=== PATIENT | female | born 1950 | race Caucasian/White ===

== ENCOUNTER 2020-07-15 07:56 | Day surgery (SDC) | payer MEDICARE ==
[2020-07-15] VITALS (9 sets, daily range): BP systolic 119–165; BP diastolic 54–82
[~2020-07-15] VITALS: Ht 160 cm; Wt 89.9 kg
[2020-07-15] MEDS ORDERED: OXCA150T14 (09:12)
[2020-07-15] MEDS ORDERED: METO-395 PO (09:12)
[2020-07-15] MEDS ORDERED: FURO20TA4 PO (09:12)
[2020-07-15] MEDS ORDERED: PHEN100C12 PO (09:12)
[2020-07-15] MEDS ORDERED: LEVO50TA8 PO (09:12)
[2020-07-15] MEDS ORDERED: LEVE750T PO (09:12)
[2020-07-15 12:56] LABS: GLUCOSE,CSF 50 MG/DL (40-75); TOTAL PROTEIN,CSF 171 MG/DL (30-60)
[2020-07-15 13:18] LABS: EOSINOPHILS,CSF 2 %; LYMPHOCYTES,CSF 57 % (40-80); MONOCYTES,CSF 19 % (15-45); NEUTRO,CSF 22 % (0-6)
[2020-07-15 13:19] LABS: APPEARANCE,CSF BLOODY; CSF SUPERNATANT COLOR RED; CSF VOLUME 6 ML; TUBE# COUNTED 2
[2020-07-15 13:25] LABS: CSF RBC 30025 /CU MM (0); CSF WBC CT 13 /CU MM (0-5)
[2020-07-15 13:47] LABS: BASOPHILS # (AUTO) 0.1 X10'3 (0-0.2); BASOPHILS % (AUTO) 1.2 % (0-1); EOSINOPHILS # (AUTO) 0.2 X10'3 (0-0.9); EOSINOPHILS % (AUTO) 3.9 % (0-6); HEMATOCRIT 39.5 % (35.0-45.0); LYMPHOCYTES # (AUTO) 2.5 X10'3 (1.1-4.8); LYMPHOCYTES % (AUTO) 42.9 % (21-51); MEAN CORPUSCULAR HEMOGLOBIN 35.7 PG (27.0-31.0); MEAN CORPUSCULAR HGB CONC 35.5 g/dL (33.0-36.5); MEAN CORPUSCULAR VOLUME 100.7 FL (78-98); MEAN PLATELET VOLUME 8.9 FL (7.4-10.4); MONOCYTES # (AUTO) 0.9 X10'3 (0-0.9); MONOCYTES % (AUTO) 15.9 % (2-12); NEUTROPHILS # (AUTO) 2.1 X10'3 (1.8-7.7); NEUTROPHILS % (AUTO) 36.1 % (42-75); PLATELET COUNT 173 X10'3 (140-440); RED BLOOD COUNT 3.93 X10'6 (4.20-5.60); RED CELL DISTRIBUTION WIDTH 13.1 % (11.5-14.5); WHITE BLOOD COUNT 5.8 X10'3 (4.5-11.0)
[2020-07-25 17:35] LABS: CSF WEST NILE VIRUS, IGG Negative (Negative); CSF WEST NILE VIRUS, IGM Negative (Negative)
[2020-07-26 17:21] LABS: VDRL, CSF Non Reactive (Non Rea:<1:1)
== END 2020-07-15 15:20 | disposition home or self-care (01) ==
LOC: RAD 07:56
PROVIDERS: ATTEND Psychiatry & Neurology Neurology
DX: G37.9 Demyelinating disease of central nervous system, unspecified (principal); G40.89 Other seizures; I10 Essential (primary) hypertension; Z86.73 Personal history of transient ischemic attack (TIA), and cerebral infarction without residual deficits; R41.3 Other amnesia
CPT/HCPCS: 36415; 62328; 82164; 82945; 83605; 83615; 83873; 83916; 84157; 84166; 85025; 86335; 86592; 86617; 86788; 86789; 87015; 87070; 87075; 87102; 87210; 89051

== ENCOUNTER 2020-11-16 07:22 | Day surgery (SDC) | payer MEDICARE ==
[~2020-11-16] VITALS: Ht 160 cm; Wt 89.8 kg
[~2020-11-16 07:22] MED LIST: FURO20TA4 PO; LEVE750T PO; LEVO50TA8 PO; METO-395 PO; OXCA150T14 PO; PHEN100C12 PO
[2020-11-16 09:15] LABS: BASOPHILS # (AUTO) 0.1 X10'3 (0-0.2); BASOPHILS % (AUTO) 0.9 % (0-1); EOSINOPHILS # (AUTO) 0.2 X10'3 (0-0.9); HEMATOCRIT 40.5 % (35.0-45.0); LYMPHOCYTES # (AUTO) 2.3 X10'3 (1.1-4.8); LYMPHOCYTES % (AUTO) 40.8 % (21-51); MEAN CORPUSCULAR HEMOGLOBIN 35.8 PG (27.0-31.0); MEAN CORPUSCULAR HGB CONC 34.6 g/dL (33.0-36.5); MEAN CORPUSCULAR VOLUME 103.4 FL (78-98); MEAN PLATELET VOLUME 8.2 FL (7.4-10.4); MONOCYTES # (AUTO) 0.8 X10'3 (0-0.9); MONOCYTES % (AUTO) 13.8 % (2-12); NEUTROPHILS # (AUTO) 2.4 X10'3 (1.8-7.7); NEUTROPHILS % (AUTO) 41.5 % (42-75); PLATELET COUNT 186 X10'3 (140-440); RED BLOOD COUNT 3.92 X10'6 (4.20-5.60); RED CELL DISTRIBUTION WIDTH 13.2 % (11.5-14.5); WHITE BLOOD COUNT 5.7 X10'3 (4.5-11.0)
[2020-11-16 10:03] VITALS: BP 151/69
[2020-11-16] MEDS ORDERED: VITA1TAB20 PO (10:27)
[2020-11-16] MEDS ORDERED: IBUP-1984 PO (10:27)
[2020-11-16] MEDS ORDERED: ASPI81TA52 PO (10:27)
[2020-11-16] MEDS ORDERED: CETI-194 PO (10:27)
[2020-11-16] MEDS ORDERED: MAGN500C16 PO (10:27)
[2020-11-16] MEDS ORDERED: MELA10CA2 PO (10:27)
[2020-11-16] MEDS ORDERED: POTA8CAP20 PO (10:27)
[2020-11-16] MEDS ORDERED: CHOL400T57 PO (10:27)
[2020-11-16] MEDS ORDERED: CA C1TAB95 PO (10:27)
[2020-11-16 11:20] VITALS: BP 144/78
[2020-11-16 11:35] VITALS: BP 163/77
[2020-11-16 11:50] VITALS: BP 157/76
[2020-11-16 12:06] VITALS: BP 147/60
[2020-11-16 12:20] LABS: GLUCOSE,CSF 45 MG/DL (40-75); TOTAL PROTEIN,CSF 177 MG/DL (30-60)
[2020-11-16 12:22] VITALS: BP 143/54
[2020-11-16 13:01] LABS: APPEARANCE,CSF HAZY
[2020-11-16 13:02] LABS: CSF SUPERNATANT COLOR COLORLESS; CSF VOLUME 0.8 ML; TUBE# COUNTED 2
[2020-11-16 13:05] LABS: CSF RBC 18125 /CU MM (0); LYMPHOCYTES,CSF 67 % (40-80); MONOCYTES,CSF 19 % (15-45); NEUTRO,CSF 13 % (0-6)
[2020-11-16 13:06] LABS: APPEARANCE,CSF HAZY; EOSINOPHILS,CSF 1 %
[2020-11-16 13:07] LABS: CSF RBC 4075 /CU MM (0); CSF SUPERNATANT COLOR COLORLESS; CSF WBC CT 10 /CU MM (0-5); EOSINOPHILS,CSF 1 %; LYMPHOCYTES,CSF 55 % (40-80); MONOCYTES,CSF 31 % (15-45); NEUTRO,CSF 13 % (0-6); TUBE# COUNTED 1
[2020-11-17 06:23] LABS: CSF WBC CT 20 /CU MM (0-5)
[2020-11-17 08:26] LABS: IMMUNOGLOBULIN G, QN, SERUM 967 mg/dL (586-1602)
== END 2020-11-16 13:17 | disposition home or self-care (01) ==
LOC: SSTAY O 07:22
PROVIDERS: ATTEND Psychiatry & Neurology Neurology
DX: G37.9 Demyelinating disease of central nervous system, unspecified (principal); Z88.0 Allergy status to penicillin; Z88.2 Allergy status to sulfonamides; Z79.899 Other long term (current) drug therapy
CPT/HCPCS: 36415; 62328; 82040; 82042; 82784; 82945; 83605; 83873; 83916; 84157; 85025; 86592; 89051